=== PATIENT | male | born 1990 | race Caucasian/White ===

== ENCOUNTER 2016-09-10 20:34 | Emergency (ER) | payer MEDICAID ==
[2016-09-10 20:39] VITALS: TEMP 98.4
[2016-09-10] MEDS ORDERED: AMOXICILLIN/CLAVULANATE POT 875/125 MG TAB PO ONE (21:56)
--- NOTE | 2016-09-10 21:59 | EDPHY ---
H & P Smoking Status: Current every day smoker Time Seen by Provider: 09/10/16 21:14 HPI/ROS: CHIEF COMPLAINT: Cat bite HISTORY OF PRESENT ILLNESS: 26-year-old male presents to the emergency department with cat bite to the right hand. The patient states that his kidneys was near a dog and he was trying to hold kidney back and accidentally got bit in the palm of his right hand and sustained abrasions to his right wrist. He believes his tetanus shot is current. He is unsure of the cat's rabies status. He has only owned the cat for 1 month. ROS: Denies numbness or tingling in his fingers, retained foreign body or other injuries. (Ayla Alvarez) Past Medical/Surgical History: Negative (Ayla Alvarez) Social History: Single (Ayla Alvarez) Physical Exam: On examination the patient has superficial looking abrasion to the base of the palm of the right hand overlying thenar eminence. No evidence of retained foreign body. No active bleeding noted. Appears very superficial. He also superficial abrasions to the volar aspect of the right wrist. Full range of motion of his fingers and his wrist. No palpable bony tenderness. Normal sensation to light touch. Strong radial pulse at the right wrist. (Ayla Alvarez) Constitutional: Initial Vital Signs Temperature (C) 36.9 C 09/10/16 20:36 Heart Rate 91 09/10/16 20:36 Respiratory Rate 16 09/10/16 20:36 Blood Pressure 123/74 H 09/10/16 20:36 O2 Sat (%) 94 09/10/16 20:36 O2 Delivery Mode Room Air Allergies/Adverse Reactions: No Known Allergies Allergy (Unverified 09/10/16 20:36) Home Medications: Medication Instructions Recorded Amoxicillin/Clavulanate Pot 875 mg PO BID #10 tab 09/10/16 [Augmentin 875 mg tab] MDM/Departure - MDM Medications Given: Discontinued Medications Amoxicillin/Clavulanate Potassium (Augmentin 875mg) 875 mg PO EDNOW ONE PRN Reason: Protocol Stop: 09/10/16 21:57 Last Admin: 09/10/16 22:06 Dose: 875 mg Ibuprofen (Motrin) 600 mg PO EDNOW ONE Stop: 09/10/16 22:31 Last Admin: 09/10/16 22:34 Dose: 600 mg ED Course/Re-evaluation: Animal Control has been contacted by the nurse. Explained to the patient that the animal likely and will need to be observed for 10 days for any rapid behavior. This was a provoked event. The patient was started on Augmentin. He is aware of the risks of infection associated with a cat bite. His tetanus shot is current. (Ayla Alvarez) The patient was evaluated and managed by the physician emergency medicine physician assistant. I have reviewed this chart and I agree with the findings and plan of care as documented , as indicated by my signature. I am the secondary supervising physician. ( Sandra Montana) - Depart Disposition: Home, Routine, Self-Care Clinical Impression: Cat bite of right hand Qualifiers: Encounter type: initial encounter Qualified Code(s): S61.451A - Open bite of right hand, initial encounter Condition: Good Instructions: Animal Bite (ED), Acute Wounds (ED) Additional Instructions: Augmentin 875 mg twice daily for 5 days to prevent infection. Return if you notice any signs or symptoms of infection such as redness, swelling, increased pain, fever, purulent drainage. Keep wound dry, clean and protected. Observe your cat for 10 days for any abnormal behavior. Prescriptions: Amoxicillin/Clavulanate Pot [Augmentin 875 mg tab] 875 mg PO BID #10 tab Referrals: Rosario Carolina MD [Medical Doctor] - 2-3 days, if not improved (Primary care provider mrp controller)
[2016-09-10] MEDS ORDERED: IBUPROFEN 600 MG TAB PO ONE ×2 (22:29→22:30)
[2016-09-10 22:34] VITALS: BP 112/53; PULSE 71; RESP 20; O2SAT 95
== END 2016-09-10 22:33 | disposition home or self-care (01) ==
DX: S61.451A Open bite of right hand, initial encounter (principal); W55.01XA Bitten by cat, initial encounter